=== PATIENT | male | born 1975 | race Caucasian/White ===

== ENCOUNTER 2024-05-02 08:52 | Emergency (ER) | payer BC, OTHER ==
[2024-05-02 09:11] VITALS: TEMP 96.6
[2024-05-02] MEDS ORDERED: XYLOCAINE 1% HCL 20 ML MDV ONE (09:14)
[2024-05-02] MEDS ORDERED: TYLENOL 325 MG ONE (09:41)
[2024-05-02] MEDS: TYLENOL 325 MG PO STA (10:00)
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
[2024-05-02] MEDS: XYLOCAINE 1% HCL 20 ML MDV IJ ONE (10:23)
[2024-05-02 10:34] VITALS: RESP 20
[2024-05-02] MEDS ORDERED: Augmentin 875-125 Tablet ONE (10:45)
[2024-05-02] MEDS: Augmentin 875-125 Tablet PO ONE (10:46)
[2024-05-02 12:06] VITALS: PULSE 98
[2024-05-02 13:18] VITALS: BP 121/77
[2024-05-02 13:27] VITALS: O2SAT 98
== END 2024-05-02 13:38 | disposition home or self-care (01) ==
LOC: ED 08:52
DX: S01.412A Laceration without foreign body of left cheek and temporomandibular area, initial encounter (principal); S02.40DA Maxillary fracture, left side, initial encounter for closed fracture; S02.32XA Fracture of orbital floor, left side, initial encounter for closed fracture; Y04.2XXA Assault by strike against or bumped into by another person, initial encounter; Y92.148 Other place in prison as the place of occurrence of the external cause; Y99.0 Civilian activity done for income or pay; I10 Essential (primary) hypertension; Z79.899 Other long term (current) drug therapy
CPT/HCPCS: 12011; 70450; 70486; 80307; 96372; 99284; A9270-GY